=== PATIENT | male | born 1965 | race Hispanic/Latino ===

== ENCOUNTER 2017-10-08 21:59 | Emergency (ER) | payer SELFPAY ==
[2017-10-08 22:18] LABS: BASOPHILS % (AUTO) 1.1 % (0.0-5.0); EOSINOPHILS % (AUTO) 2.7 % (0.0-8.0); HEMATOCRIT 41.4 % (42-54); LYMPHOCYTES % (AUTO) 43.6 % (21.0-51.0); MEAN CORPUSCULAR HEMOGLOBIN 32.9 pg (27.0-33.0); MEAN CORPUSCULAR HGB CONC 34.1 g/dL (32.0-36.0); MEAN CORPUSCULAR VOLUME 96.5 fL (79-99); MONOCYTES % (AUTO) 7.4 % (3.0-13.0); NEUTROPHILS % (AUTO) 45.2 % (40.0-77.0); PLATELET COUNT (AUTO) 340 K/uL (130-400); RED BLOOD CELL COUNT(AUTO) 4.29 MIL/uL (4.50-6.20); RED CELL DISTRIBUTION WIDTH 13.6 % (11.0-15.5); WHITE BLOOD COUNT (AUTO) 9.6 K/uL (4.8-10.8)
[2017-10-08 22:27] LABS: CREATININE 0.7 mg/dL (0.5-1.5); POTASSIUM 3.6 mmol/L (3.5-5.1)
[2017-10-08 22:32] LABS: ALBUMIN 3.9 g/dL (3.5-5.0); BILIRUBIN,TOTAL 0.2 mg/dL (0.2-1.0); TOTAL PROTEIN, SERUM 7.3 g/dL (6.0-8.3)
[2017-10-09] MEDS ORDERED: ONDANSETRON HCL 4 MG/2 ML VIAL ONE (01:56)
[2017-10-09 02:02] LABS: APPEARANCE,URINE Clear (CLEAR); BILIRUBIN,URINE Negative (NEGATIVE); COLOR,URINE Yellow (YELLOW); GLUCOSE, URINE (UA) 250 mg/dL (NEGATIVE); KETONES,URINE Negative (NEGATIVE); LEUKOCYTE ESTERASE ,URINE Negative (NEGATIVE); NITRATE,URINE Negative (NEGATIVE); OCCULT BLOOD,URINE Negative (NEGATIVE); PROTEIN,URINE Negative (NEGATIVE); UROBILINOGEN,URINE 0.2 mg/dL (0.2-1.0)
[2017-10-09 02:07] LABS: BACTERIA,URINE None Seen /HPF (None Seen); RBC,URINE 0-1 /HPF (0-1); WBC,URINE None Seen /HPF (0-1)
[2017-10-09 02:08] LABS: MUCUS,URINE Few LPF (None Seen); SQUAMOUS EPITHELIAL CELL,UR None Seen /HPF (0-2)
== END 2017-10-09 03:29 | disposition home or self-care (01) ==
LOC: EDH 21:59
DX: F10.129 Alcohol abuse with intoxication, unspecified (principal); R06.02 Shortness of breath; E11.9 Type 2 diabetes mellitus without complications; I10 Essential (primary) hypertension; G20 Parkinson's disease; Z79.4 Long term (current) use of insulin; Z79.899 Other long term (current) drug therapy
CPT/HCPCS: 36415 ×2; 80053; 81001; 84484; 85025; 93005; 96374; 99291; G0480 ×2; J2405

== ENCOUNTER 2025-04-08 12:15 | Emergency (ER) | payer OTHER ==
[~2025-04-08] VITALS: Ht 157.5 cm; Wt 39.5 kg
--- NOTE | 2025-04-08 12:19 | ERN ---
ED Note History of Present Illness Stated Complaint: RT KNEE PAIN, FALL Chief Complaint: Knee Injury/Swelling Time Seen by MD: 12:17 Dictation: PATIENT IS A 60-YEAR-OLD MALE HERE STATING THAT HE WAS WALKING BEHIND HIS WHEELCHAIR THROWING OUT TRASH YESTERDAY WHEN HE STEPPED INTO A HOLE AND LANDED ON HIS RIGHT KNEE. HE WAS ABLE TO GET UP AND WALKING TO THE HOUSE. THERE WAS NO SHORTENING OR ROTATION OF THE RIGHT LEG HE HAS NOT TAKEN ANYTHING PRIOR TO ARRIVAL FOR PAIN. Allergies: Coded Allergies: No Known Allergies (Unverified Allergy, Unknown, 04/08/25) Past Medical History RN Note Reviewed/Agreed w/PFSH: Yes Review of System Dictation CONSTITUTIONAL: NEGATIVE EXCEPT FOR HPI HEAD/FACE: NEGATIVE EXCEPT FOR HPI EENT: NEGATIVE EXCEPT FOR HPI RESPIRATORY: NEGATIVE EXCEPT FOR HPI GASTROINTESTINAL/ABDOMINAL: NEGATIVE EXCEPT FOR HPI GENITOURINARY: NEGATIVE EXCEPT FOR HPI MUSCULOSKELETAL: NEGATIVE EXCEPT FOR HPI INTEGUMENTARY: NEGATIVE EXCEPT FOR HPI RIGHT KNEE PAIN NEUROLOGICAL/PSYCH: NEGATIVE EXCEPT FOR HPI HEMATOLOGIC/LYMPHATIC: NEGATIVE EXCEPT FOR HPI ALL SYSTEMS NEGATIVE, EXCEPT NOTED ABOVE. 13 POINT REVIEW OF SYSTEMS ASSESSED AND ALL NEGATIVE EXCEPT FOR ABOVE. Initial Vital Sign VS Vital Signs Date Time Temp Pulse Resp B/P (MAP) Pulse Ox O2 Delivery O2 Flow Rate FiO2 04/08/25 12:17 98.6 82 16 124/56 98 Room Air 0 04/08/25 13:04 21 Physical Exam Dictation VITAL SIGNS REVIEWED GENERAL APPEARANCE: ALERT, ORIENTED X 3, MILD ACUTE DISTRESS, WELL DEVELOPED, NOURISHED. HEAD AND FACE: NON-TRAUMATIC. EYES: PERRL, PINK CONJUNCTIVAS, EYELID NO TRAUMA, ANTERIOR CHAMBER WITH ARCUS SENILIS. EARS: PINNAS INTACT AND NO SIGNS OF TRAUMA OR ERYTHEMA EAR CANALS CLEAR AND NO DISCHARGE TM NO ERYTHEMA NOSE: NO DISCHARGE, NO BLEEDING. OROPHARYNX: MOUTH NORMAL, TONGUE PINK, PHARYNX CLEAR,NO ERYTHEMA, TONSILS NO EXUDATES, NO ABSCESSES NOTED, MUCOUS MEMBRANE MOIST NECK: SUPPLE, NON-TENDER, NO THYROMEGALY, NO MASSES, NO JVD, NO BRUITS BREAST:DEFERRED CHEST:NO TENDERNESS, NO CREPITUS, NO PARADOXICAL MOVEMENT, NO RETRACTIONS LUNGS:CLEAR, WELL-VENTILATED, SYMMETRIC, NO RALES, NO WHEEZING, NO RHONCHI, NO STRIDOR, GOOD BREATH SOUNDS BILATERALLY HEART: REGULAR RATE, REGULAR RHYTHM, NO MURMUR, NO GALLOPS VASCULAR: NO PERIPHERAL EDEMA, ABDOMEN: SOFT, POSITIVE BOWEL SOUNDS, NONDISTENDED, NO GUARDING, NONTENDER, NO REBOUND, NO MASSES NO HEPATOMEGALY, NO SPLENOMEGALY, NO HENRY'S SIGN, NO HERNIAS. RECTAL: DEFERRED GENITAL: DEFERRED NEUROLOGICAL: NORMAL SPEECH, MOTOR FUNCTION INTACT, SENSORY FUNCTION INTACT MUSCULOSKELETAL: NECK NONTENDER, FULL RANGE OF MOTION, BACK NONTENDER, FULL RANGE OF MOTION, EXTREMITIES: RIGHT KNEE TENDERNESS. DECREASED RANGE OF MOTION SECONDARY TO PAIN, NO SHORTENING OR ROTATION OF RIGHT LEG SKIN: COLOR PINK, DRY, NO TURGOR, NO RASH, NO LACERATIONS, NO ABRASIONS, NO CONTUSIONS. LYMPHATIC: DEFERRED Results (Laboratory/Radiology) Laboratory/Radiology 1315/RIGHT KNEE X-RAY NEGATIVE EFFUSION NOTED Labs Reviewed?: Yes ED Course ED Course Orders Procedure Category Date Status Time Knee 3vws Rt RAD 04/08/25 Taken 12:17 Acetaminophen 500mg PHA 04/08/25 Complete Tab (Tylenol 500mg T 12:30 Current Medications Medications (Trade) Dose Ordered Sig/Heydi Route PRN Reason Start Time Stop Time Status Last Admin Dose Admin Acetaminophen (TYLenol 500MG TAB) 1,000 mg ONCE ONCE PO 04/08/25 12:30 04/08/25 12:31 DC 04/08/25 12:57 Vital Signs Date Time Temp Pulse Resp B/P (MAP) Pulse Ox O2 Delivery O2 Flow Rate FiO2 04/08/25 13:04 98.6 82 16 124/56 98 Room Air* 0 21 04/08/25 12:17 98.6 82 16 124/56 98 Room Air 0 1315/PAIN IS MODERATE IT WITH ACETAMINOPHEN. PATIENT WILL BE DISCHARGED HOME WITH PAIN MANAGEMENT AND REFERRED TO ORTHOPEDICS. NEUROVASCULAR CMS INTACT TO RIGHT LEG Medical Decision Making MDM MEDICAL DECISION-MAKING BASED ON X-RAY OF RIGHT KNEE WITH A EMPIRIC TREATMENT OF PAIN RIGHT KNEE X-RAY NEGATIVE EXCEPT FOR MILD EFFUSION PATIENT DISCHARGED HOME WITH IBUPROFEN AND REFERRAL TO DR. TANNER MCCORMICK DX & DISP Disposition: Discharge Departure Impression: Primary Impression: Contusion of right knee, initial encounter Additional Impression: Fall Condition: Stable Scripts Ibuprofen (Ibuprofen) 600 Mg Tablet 600 MG PO Q6H PRN for PAIN, #30 TAB Prov: MICHAELLE BRAND [employer] 04/08/25 Additional Instructions: FOLLOW-UP WITH PRIMARY CARE PROVIDER IN 1 TO 2 DAYS. TAKE MEDICATIONS DIRECTED HERE IN THE EMERGENCY ROOM. OKAY TO CONTINUE HOME MEDICATIONS UNLESS OTHERWISE DISCUSSED DURING YOUR VISIT IN THE EMERGENCY ROOM TODAY. RETURN TO YOUR NEAREST EMERGENCY ROOM IF SYMPTOMS WORSEN OR IF THERE IS NO IMPROVEMENT. CALL 911 IF YOU NEED IMMEDIATE ASSISTANCE. TAKE TYLENOL OR MOTRIN [id number] NEEDED AND IF NO CONTRAINDICATIONS ARE PRESENT. INCREASE ORAL HYDRATION. A WOUND CULTURE OR URINE CULTURE WAS ORDERED HERE IN THE EMERGENCY ROOM DEPARTMENT PLEASE FOLLOW-UP WITH PRIMARY CARE PROVIDER AND ADVISE THEM TO GET REPEAT PORTS FROM OUR FACILITY. IF YOU HAD ANY [place] WRAP/SPLINTS THAT WERE APPLIED HERE, PLEASE DO NOT REMOVE THEM UNTIL YOU SEE YOUR PRIMARY CARE OR SPECIALTY. COOL COMPRESSES TO RIGHT KNEE THREE TO 4 TIMES A DAY. TAKE IBUPROFEN NEEDED FOR PAIN. FOLLOW UP WITH DOCTOR OF ORTHOPEDICS IN THE NEXT 1-2 DAYS, CALL FOR AN APPOINTMENT. Referrals: RAMONA NEELY (PCP) TANNER MCCORMICK MD Time of Disposition: 13:17 I have reviewed the case, and I agree with, Diagnosis and Plan MICHAELLE BRAND NP Apr 08, 2025 12:19
[2025-04-08 13:04] VITALS: BP 124/56; PULSE 82; RESP 16; TEMP 98.6; O2SAT 98
[2025-04-08] MEDS ORDERED: IBUP-1492 PO (13:18)
--- NOTE | 2025-04-08 13:35 | HMCIMG ---
Examination: Right knee, 3 views Clinical history: Pain Comparison: None Findings: AP, oblique, lateral views of the right knee are submitted. Small knee joint effusion. Joint spaces are maintained. No displaced fracture is appreciated. Mild prepatellar and infrapatellar bursitis. Incidental atherosclerotic vascular calcifications. Impression: No acute osseous abnormality. Small knee joint effusion may reflect internal derangement. This may be further characterized with MR imaging. Mild prepatellar and infrapatellar bursitis. /[place]
== END 2025-04-08 13:28 | disposition home or self-care (01) ==
LOC: EDH 12:15
DX: S80.01XA Contusion of right knee, initial encounter (principal); W18.39XA Other fall on same level, initial encounter; Y93.89 Activity, other specified; Y92.89 Other specified places as the place of occurrence of the external cause; Y99.8 Other external cause status
CPT/HCPCS: 73562; 99283

== ENCOUNTER 2025-04-10 08:05 | Day surgery (SDC) | payer OTHER ==
[~2025-04-10] VITALS: Ht 157.5 cm; Wt 39.5 kg
[2025-04-10] VITALS (10 sets, daily range): BP systolic 96–142; BP diastolic 51–74; PULSE 65–80; RESP 13–18; TEMP 97.3–98.1
[~2025-04-10 08:05] MED LIST: 0.9%NACL 1000ML 1,000 ML IV ONE; IBUP-1492 PO
[2025-04-10] MEDS ORDERED: LISI2.5T13 PO (09:03)
[2025-04-10] MEDS ORDERED: CITA-107 PO (09:03)
[2025-04-10] MEDS ORDERED: CARB-38 PO (09:03)
[2025-04-10] MEDS ORDERED: ATOR10 PO (09:03)
[2025-04-10] MEDS ORDERED: TAMS-55 PO (09:03)
[2025-04-10] MEDS ORDERED: DAPA5TAB PO (09:03)
[2025-04-10] MEDS ORDERED: LEVE750T85 PO (09:03)
[2025-04-10] MEDS ORDERED: CILO50TA2 PO (09:03)
[2025-04-10] MEDS ORDERED: ALBU2.5V2 NEB (09:03)
[2025-04-10] MEDS ORDERED: ESCI20TA38 PO (09:03)
[2025-04-10] MEDS ORDERED: ALBU18HF7 IH (09:03)
--- NOTE | 2025-04-10 10:43 | NUR ---
[facility] WAS CALLED PT STATES GIRLFRIEND WILL BE HOME AT 12
--- NOTE | 2025-04-10 11:27 | NUR ---
Full and complete discharge instruction regarding Gastro procedure to Patient and Friend, Alek. All questions answered. PIV removed with catheter tip intact. Tolerated fluids and voided in bathroom. W/C to POV with FriendAlek.
== END 2025-04-10 11:27 | disposition home or self-care (01) ==
LOC: DAH 08:05
PROVIDERS: ATTEND Internal Medicine Gastroenterology
DX: K92.1 Melena (principal); B37.81 Candidal esophagitis; K29.80 Duodenitis without bleeding; K22.89 Other specified disease of esophagus; K29.70 Gastritis, unspecified, without bleeding; I10 Essential (primary) hypertension; K92.0 Hematemesis; Z79.899 Other long term (current) drug therapy; Z53.8 Procedure and treatment not carried out for other reasons
CPT/HCPCS: 43239; 45378; 82948 ×2; J7030; J2704; A4215; A4223; A4222; A4221; A4663; A4606; J3490